=== PATIENT | female | born 1970 | race African-American/Black ===

== ENCOUNTER 2017-07-13 02:44 | Emergency (ER) | payer OTHER ==
[~2017-07-13] VITALS: Ht 160 cm; Wt 72.6 kg
[2017-07-13] MEDS ORDERED: BENADRYL25 MG PO (03:32)
[2017-07-13] MEDS ORDERED: PREDNISONE 20 M20 MG PO (03:32)
[2017-07-13 04:18] VITALS: BP 134/89
== END 2017-07-13 04:19 | disposition home or self-care (01) ==
LOC: ER 02:44
DX: L25.9 Unspecified contact dermatitis, unspecified cause (principal)

== ENCOUNTER 2017-08-23 22:32 | Emergency (ER) | payer OTHER ==
[~2017-08-23] VITALS: Ht 160 cm; Wt 66.7 kg
[~2017-08-23 22:32] MED LIST: BENADRYL25 MG PO; PREDNISONE 20 M20 MG PO
[2017-08-23 23:26] LABS: URINE BILIRUBIN NEGATIVE (Negative); URINE BLOOD 2+ (Negative); URINE COLOR YELLOW; URINE GLUCOSE-RANDOM* NEGATIVE (Negative); URINE KETONES NEGATIVE (Negative); URINE NITRITE NEGATIVE (Negative); URINE PROTEIN (DIPSTICK) NEGATIVE (Negative); URINE SPECIFIC GRAVITY 1.025 (1.003-1.035)
[2017-08-23 23:35] LABS: BACTERIA 1-9 Few /HPF (None Seen); CASTS None Seen /LPF (None Seen); CRYSTALS None Seen /LPF (None Seen); SQUAMOUS 0-3 Few /LPF (0-3); URINE RBC 3-10 Few /HPF (0-2); URINE WBC 0-5 Rare /HPF (0-5)
[2017-08-24] MEDS ORDERED: BACTRIM DS TAB1 EACH PO (00:01)
[2017-08-24] MEDS ORDERED: CYCLOBENZAPRINE5 MG PO (00:01)
[2017-08-24] MEDS ORDERED: TORADOL 10 MG T10 MG PO (00:01)
[2017-08-24] MEDS ORDERED: PREDNISONE 20 M20 MG PO (00:01)
[2017-08-24 00:17] VITALS: BP 135/89
== END 2017-08-24 00:17 | disposition home or self-care (01) ==
LOC: ER 22:32
PROVIDERS: Physician Assistant
DX: N39.0 Urinary tract infection, site not specified (principal); Z88.5 Allergy status to narcotic agent